=== PATIENT | female | born 1990 | race Hispanic/Latino ===

== ENCOUNTER 2018-09-09 19:27 | Emergency (ER) | payer OTHER ==
[2018-09-09 20:04] VITALS: BP 105/54; PULSE 67; RESP 16; TEMP 98.4; O2SAT 96
[2018-09-09] MEDS ORDERED: Tdap Vaccine 0.5 ml Vial (10-64 yrs) IM ONE ×2 (20:12→20:34)
[2018-09-09] MEDS ORDERED: Acetaminophen-Codeine 300/30 mg Tab PO STA (20:23)
[2018-09-09] MEDS ORDERED: Lidocaine 1% Inj (20ml) IJ ONE (20:23)
[2018-09-09] MEDS ORDERED: Bacitracin 500 Units/gm Oint Foilpak UD TOP STA (20:23)
[2018-09-09] MEDS ORDERED: Lidocaine Hydrochloride 1% 10 ML ONE (20:35)
--- NOTE | 2018-09-09 20:36 | ED PDOC ---
HPI: Wound Care - HPI Time Seen by Provider: 09/09/18 20:09 Chief Complaint (Nursing): Abnormal Skin Integrity Chief Complaint (Provider): Abnormal Skin Integrity History Per: Patient Exam Limitations: no limitations Onset/Duration Of Symptoms: Hrs (1x hour prior to arrival) Current Symptoms Are (Timing): Still Present Location Of Injury: Left: Hand (3rd digit) Quality Of Symptoms: Other (active bleeding) Additional Complaint(s): 27 year old female with no pertinent past medical history presents to the ED for evaluation of a left 3rd digit laceration. Patient states that she was cleaning the slicer of a vegetable spiralizer, accidentally cutting her left 3rd digit. Patient denies taking medications prior to arrival. Patient is left hand dominant. Tetanus not up to date. No other complaints, denies loss of sensation. PMD: None Past Medical History Reviewed: Historical Data, Nursing Documentation, Vital Signs Vital Signs: Last Vital Signs Temp 98.4 F 09/09/18 20:01 Pulse 67 09/09/18 20:01 Resp 16 09/09/18 20:01 BP 105/54 L 09/09/18 20:01 Pulse Ox 96 09/09/18 20:01 JW Report Viewed: Yes - Medical History PMH: No Chronic Diseases - Surgical History Surgical History: Tonsillectomy - Family History Family History: States: No Known Family Hx - Social History Current smoker - smoking cessation education provided: No Alcohol: Social Drugs: Denies - Immunization History Hx Tetanus Toxoid Vaccination: No - Home Medications Home Medications: Ambulatory Orders Medication Instructions Recorded Bacitracin Ointment [Bacitracin] 1 applic TOP BID #1 tube 09/09/18 - Allergies Allergies/Adverse Reactions: Allergies Allergy/AdvReac Type Severity Reaction Status Date / Time No Known Allergies Allergy Verified 09/09/18 20:01 Review of Systems ROS Statement: Except As Marked, All Systems Reviewed And Found Negative Musculoskeletal: Positive for: Other (laceration to left 3rd digit, with active bleeding) Physical Exam - Reviewed Nursing Documentation Reviewed: Yes Vital Signs Reviewed: Yes - Physical Exam Comments: GENERAL APPEARANCE: Patient is awake, alert, oriented x 3, in mild painful distress. SKIN: Warm, dry; (-) cyanosis. NECK: Supple, FROM ENT: Mucus membranes moist. Airway patent, (-) stridor. CHEST AND RESPIRATORY: (-) rales, (-) rhonchi, (-) wheezes; breath sounds equal bilaterally. Respirations even and nonlabored. HEART AND CARDIOVASCULAR: (-) irregularity UPPER EXTREMITY: to the palmar aspect of the distal left 3rd digit: 1 cm u- shaped superficial laceration with active bleeding and tenderness. (-) ecchymosis, (-) deformity, (-) edema, (-) puss drainage, (-) visualized FB or bone involvement (+) full ROM of digit. Sensation intact, capillary refill intact. Remainder of hand nontender with full ROM. NEURO AND PSYCH: Mental status as above. Gait: steady. Speech: clear. (-) facial asymmetry - ECG O2 Sat by Pulse Oximetry: 96 (RA) Pulse Ox Interpretation: Normal Procedure: Wound Repair - Time Performed Time Performed: 21:15 - Time Out Time Out: Side verified, Site verified, Patient ID confirmed - Consent Obtained Consent obtained: Verbal - Performed by Performed by: Mid-level Provider (Reyna GUEVARA) - Indications Indication(s):: Laceration - Location Location:: Left Finger:: Middle Shape:: Curvilinear Dimensions Length cm: 1 Depth:: Epidermis - Anesthetic Technique Anesthetic Technique: Local Local/Regional Anesthetic:: Lidocaine 1% - Debris Debris:: None - Irrigated Irrigated with ml of normal saline: 200 - Complexity Complexity:: Simple (one layer) - Wound repair method Sutures:: # (3), Size (5-0), Type (prolene), Technique (simple interrupted) - Complications Complications: None - Patient tolerated procedure Patient Tolerated Procedure:: Well Medical Decision Making Medical Decision Makin:10 Clinical impression: 27 year old female with a finger laceration Initial plan: * adacel (10-64 yrs) 0.5 ml IM * laceration repair * reevaluation 2114 Laceration repair performed by Reyna GUEVARA. See procedure note. Patient educated on wound care. Bacitracin, Telfa, and cling dressing advised. Suture removal advised in 7 days. Based on history, exam and diagnostic results, plan will be for outpatient follow up. Patient instructed to follow-up with pmd / referral provided / the clinic in 1- 2 days without fail. Advised to take medication as prescribed. Return to the emergency room at any time for any new or worsening symptoms. Patient states she fully agrees with and understands discharge instructions. States that she agrees with the plan and disposition. Verbalized and repeated discharge instructions and plan. I have given the patient opportunity to ask any additiona l questions. ScribeAttestation: Documented bySanna Garcia, acting as a scribe for Sanna Payan Provider ScribeAttestation: All medical record entries made by the Scribe were at my direction and personally dictated by me. I have reviewed the chart and agree that the record accurately reflects my personal performance of the history, physical exam, medical decision making, and the department course for this patient. I have also personally directed, reviewed, and agree with the discharge instructions and disposition. Disposition - Clinical Impression Clinical Impression: Laceration of finger of left hand - Patient ED Disposition Is Patient to be Admitted: No Counseled Patient/Family Regarding: Studies Performed, Diagnosis, Need For Followup, Rx Given - Disposition Referrals: primary, doctor [Other] Clark Schroeder MD [Staff Provider] - Disposition: Routine/Home Disposition Time: 21:30 Condition: STABLE Additional Instructions: SUTURE REMOVAL IN 7 DAYS. The emergency medical care you received today was directed at your acute symptoms. If you were prescribed any medication, please fill it and take as directed. It may take several days for your symptoms to resolve. Return to the Emergency Department if your symptoms worsen, do not improve, or if you have any other problems. Please contact your doctor in 2 days for re-evaluation and follow up / or call one of the physicians/clinics you have been referred to that are listed on the Patient Visit Information form that is included in your discharge packet. Bring any paperwork you were given at discharge with you along with any medications you are taking to your follow up visit. Our treatment cannot replace ongoing medical care by a primary care provider (PCP) outside of the emergency department. Prescriptions: Bacitracin Ointment [Bacitracin] 1 applic TOP BID #1 tube Instructions: Wound Care, Laceration Repair With Stitches (DC), Common Finger Injuries Forms: [facility] (Upper Sorbian) Print Language: [place] - POA Present On Arrival: None
== END 2018-09-09 22:14 | disposition home or self-care (01) ==
LOC: H.ER 19:27
DX: S61.213A Laceration without foreign body of left middle finger without damage to nail, initial encounter (principal); W31.89XA Contact with other specified machinery, initial encounter; Y93.89 Activity, other specified; Z23 Encounter for immunization